=== PATIENT | male | born 1985 | race Caucasian/White ===

== ENCOUNTER 2019-09-27 11:25 | Inpatient (IN) | payer BC, OTHER, SELFPAY ==
[~2019-09-27 11:25] MED LIST: Dexamethasone 20 MG/5 ML VIAL ONE; Glycopyrrolate 0.2 MG/ML 5 ML SYRINGE ONE; Iopamidol-370 76% 500 ML 1 ML ONE; Lidocaine 1% PF 5 ML VIAL ONE; Metoclopramide HCl 10 MG/2 ML VIAL ONE; Ondansetron PF 4 MG/2 ML Vial ONE; PHENYLEPHRINE-NS 100 MCG/ML 10 ML SYRINGE ONE; PROPOFOL 200 MG/20 ML VIAL ONE; Rocuronium Bromide 10 MG/ML (10ML VIAL) ONE
--- NOTE | 2019-09-27 11:54 | RAD ---
Radiograph left leg tibia-fibula 2 views: HISTORY: Crush injury in 34-year-old male FINDINGS: No fracture of tibia or fibula IMPRESSION: Negative
--- NOTE | 2019-09-27 11:55 | RAD ---
EXAM: 2 views of the left femur HISTORY: Leg pain after crush injury COMPARISON: None FINDINGS: There is no evidence of acute fracture or dislocation. No soft tissue swelling is seen. No degenerative changes are seen in the hip. No radiopaque foreign body is seen. IMPRESSION: No evidence of acute osseous abnormality.
[2019-09-27 11:58] LABS: #Eosinphils 0.1 thou/uL (0.0-0.7); #Lymphocytes 1.9 thou/uL (1.20-3.40); #Monocytes 0.6 thou/uL (0.11-0.59); #Neutrophils 7.5 thou/uL (1.40-6.50); %Basophils 0.2 % (0.0-1.0); %Eosinophils 0.6 % (0.0-10.0); %Monocytes 5.6 % (0.0-10.0); %Neutrophils 74.5 % (42.0-75.0); Hemoglobin 13.3 g/dL (14.0-18.0); Mean Corpuscular HGB CONC 33.3 g/dL (32.0-36.0); Mean Corpuscular Hemoglobin 31.8 pg (27.0-31.0); Mean Corpuscular Volume 95.5 fL (78.0-98.0); Mean Platelet Volume 8.4 fL (7.4-10.4); Platelet Count 175 thou/uL (130-400); RBC Distribution Width 11.3 % (11.5-14.5); Red Blood Cell (RBC) Count 4.18 mill/uL (4.70-6.10)
[2019-09-27 12:25] LABS: ALT (SGPT) 13 U/L (8-55); AST (SGOT) 15 U/L (5-34); Albumin 4.3 g/dL (3.5-5.0); Alkaline Phosphatase 46 U/L (40-110); Anion Gap 13 mmol/L (10-20); BUN (Urea Nitrogen) 18 mg/dL (8.9-20.6); Bilirubin, Total 0.7 mg/dL (0.2-1.2); CK (CPK) 101 U/L (30-200); Calc. Creatinine Clearance 0 mL/min (70-130); Calcium 8.7 mg/dL (7.8-10.44); Carbon Dioxide 26 mmol/L (22-29); Chloride 103 mmol/L (98-107); Estimated GFR-MDRD 67; Globulin 2.4 g/dL (2.4-3.5); Glucose 137 mg/dL (70-105); Potassium 3.8 mmol/L (3.5-5.1); Protein, Total 6.7 g/dL (6.0-8.3); Sodium 138 mmol/L (136-145)
[2019-09-27] MEDS ORDERED: SUGAMMADEX SODIUM 500 MG/5 ML VIAL ONE (12:34)
[2019-09-27] MEDS ORDERED: Famotidine/PF 20 mg/2ml Vial ONE (12:34)
[2019-09-27] MEDS ORDERED: Heparin 5,000 UNITS/ML VIAL ONE (12:46)
[2019-09-27] MEDS ORDERED: Protamine Sulfate 50 MG/5 ML VIAL ONE ×2 (12:46→15:36)
--- NOTE | 2019-09-27 12:47 | CT ---
EXAM: CTA of the abdomen, pelvis, and bilateral lower extremities HISTORY: Crush injury to the left leg by machinery COMPARISON: None TECHNIQUE: Multiple contiguous axial images were obtained a CTA of the abdomen, pelvis, and bilateral lower extremities with contrast. Sagittal and coronal 3-D MIP reformats were performed. FINDINGS: Liver: Unremarkable. Gallbladder: Unremarkable. Kidneys: Unremarkable. Adrenal glands: Unremarkable. Spleen: Unremarkable. Pancreas: Unremarkable. Bowel: Unremarkable. Reproductive organs :Unremarkable. Retroperitoneum: No lymphadenopathy Bones: Degenerative changes in the spine. Inferior thorax: Unremarkable. Abdominal aorta. Normal caliber without evidence of dissection or aneurysmal dilatation. Celiac trunk: Patent SMA: Patent SHASHA: Patent Renal arteries: Bilateral single renal arteries without significant atherosclerotic disease Bilateral common iliac arteries: Unremarkable. Internal iliac arteries: Unremarkable. External iliac arteries: Unremarkable. Common femoral arteries: Unremarkable. Profunda femoral arteries: Unremarkable. Superficial femoral arteries: Unremarkable. Popliteal arteries: There is a 5.6 cm area of occlusion of the left popliteal artery with reconstitut ion of flow distally. Surrounding hematoma is seen. The right popliteal artery is unremarkable.. Right lower extremity: 3 vessel runoff without significant disease Left lower extremity: 3 vessel runoff without significant disease. Runoff evaluation is limited secon brent to the more proximal occlusion. IMPRESSION: Occlusion of the left popliteal artery with maintained distal flow. Dr. Miller notified of findings at 12:43 PM on 09/27/2019
[2019-09-27] MEDS ORDERED: TETANUS AND DIPHTHERIA TOX/PF 0.5 ML DISP.SYRIN IM ONE (12:48)
[2019-09-27] MEDS ORDERED: Morphine 2 MG/ML VIAL SLOW IVP PRN (12:48)
[2019-09-27] MEDS ORDERED: Ondansetron PF 4 MG/2 ML Vial IVP PRN ×2 (12:48→16:19)
[2019-09-27] MEDS ORDERED: Morphine 4 MG/ML VIAL SLOW IVP PRN (12:48)
[2019-09-27] MEDS ORDERED: hydrALAZINE 20 MG/ML VIAL SLOW IVP PRN (12:48)
[2019-09-27] MEDS ORDERED: Dextrose 5% in Water 1,000 ML IV PRN (12:48)
[2019-09-27] MEDS ORDERED: Promethazine HCl 25 MG/ML VIAL IM PRN (12:48)
[2019-09-27] MEDS ORDERED: Dextrose 50% Abboject 50 ML SYRINGE SLOW IVP PRN (12:48)
[2019-09-27] MEDS ORDERED: Fentanyl 250 MCG/5 ML VIAL ONE (12:52)
[2019-09-27] MEDS ORDERED: Fentanyl 100 MCG/2 ML VIAL ONE ×2 (12:52→17:04)
[2019-09-27] MEDS ORDERED: Phenylephrine 10 MG/ML VIAL ONE (12:52)
[2019-09-27] MEDS ORDERED: Sodium Chloride 0.9% 1,000 ML IV SCH ×2 (13:00→16:30)
[2019-09-27] MEDS ORDERED: Midazolam HCl 2 mg/2 ml Vial ONE (13:07)
[2019-09-27 13:25] LABS: Phosphorus 3.2 mg/dL (2.3-4.7)
[2019-09-27] MEDS ORDERED: Heparin 10,000 UNITS/1 ML VIAL ONE (13:45)
[2019-09-27] MEDS ORDERED: Acetaminophen 325 MG TAB PO PRN (16:19)
[2019-09-27] MEDS ORDERED: Fentanyl 100 MCG/2 ML VIAL SLOW IVP PRN ×2 (16:19)
[2019-09-27] MEDS ORDERED: HYDROcodone/Acetaminophen 5/325 mg Tablet PO PRN ×4 (16:19→21:25)
--- NOTE | 2019-09-27 17:36 | CON ---
DATE OF CONSULTATION: 09/27/2019 REQUESTING PHYSICIAN: Dr. Miller in the emergency room. CHIEF COMPLAINT: Crush injury, left leg. HISTORY OF PRESENT ILLNESS: The patient is an otherwise healthy, 34-year-old man, whose left distal thigh was caught between two pieces of having machinery. He reports local pain. He says that he can feel his foot, but below the level of the knee, his leg just does not quite feel right. Dr. Miller was not able to find dopplerable pulses and he asked me to assess the patient. The patient was able to move his toes and his ankle, and although his foot initially looked reasonably normal to me with capillary refill that was about 1 second, he had a palpable dorsalis pedis pulse on the right side, and on the left side, he did not. I was able to find a Doppler signal in the dorsalis pedis, but it did not seem to be of normal strength. I was not able to find a Doppler pulse in the posterior tibial position. The patient estimated his time of injury as 11:00 in the morning. He was checked into the ER around 11:30, and I was assessing the patient a little bit before 12:00. He went off to the Radiology suite to get a CT angiogram and I reviewed it immediately after it was performed. During that brief period of observation, his foot appeared to be a little bit duskier, though not overtly ischemic or cooler than the contralateral side. PAST MEDICAL HISTORY: Fairly noncontributory. He had had surgery on his right knee following a similar trauma. MEDICATIONS: He takes no medicines on a regular basis. ALLERGIES: HE DENIES ANY MEDICAL ALLERGIES. SOCIAL HISTORY: He does not smoke. REVIEW OF SYSTEMS: He denies any recent illnesses. PHYSICAL EXAMINATION: GENERAL: He is a young, fit-appearing man, in no distress. VITAL SIGNS: Heart rate was 70, blood pressure 155/81, temperature 97.9, and O2 saturations on room air were 98%. MUSCULOSKELETAL: He had some faint red roth about his distal left thigh, extending down a little bit below the knee. There was one very small area of bruising on the anterior thigh distally, though it was not grossly swollen, it was tender to the touch. He had palpable radial, femoral, and right dorsalis pedis pulses. I was not able to palpate the left dorsalis pedis pulse or either posterior tibial. The compartments of the left lower leg were soft. He was able to move his toes and his ankle was freely mobile. LABORATORY DATA: Showed hemoglobin of 13.3, platelets of 175,000. Electrolytes were normal. BUN was 18, creatinine 1.22, glucose 137. LFTs were normal. CK was 101. His CT angiogram showed a short-segment occlusion of the popliteal artery on the left side with occlusion about the level of the superior edge of the patella and reconstitution just below the knee joint. He appeared to have a relatively high takeoff of the anterior tibial. Femur and tib-fib films showed no evidence of fracture, and no evidence of fracture was seen on the CT scan. IMPRESSION AND RECOMMENDATIONS: Blunt traumatic occlusion of the left popliteal artery. We will take to the operating room for repair. Job ID: [id number]
--- NOTE | 2019-09-27 18:00 | OP ---
DATE OF PROCEDURE: 09/27/2019 PROCEDURES PERFORMED: Left popliteal artery repair with suprageniculate popliteal artery to tibioperoneal trunk bypass with reverse greater saphenous vein graft. PREOPERATIVE DIAGNOSIS: Blunt traumatic occlusion of the left popliteal artery. POSTOPERATIVE DIAGNOSIS: Blunt traumatic occlusion of the left popliteal artery. ANESTHESIA: General endotracheal anesthesia. INDICATIONS: The patient is a 34-year-old man, whose left distal thigh was pinned between pieces of heavy equipment. He had an abnormal vascular exam and CT scanning demonstrated short-segment occlusion of the popliteal artery. Now, taken the operating room for repair. FINDINGS: Perivascular hemorrhage within the popliteal fossa with a partial disruption of the medial head of the gastrocnemius. There was intramural hematoma in the popliteal artery and demarcation of transition zone from good pulse in the popliteal artery to absence of a pulse. Postoperatively, there was a palpable dorsalis pedis in the foot. DESCRIPTION OF PROCEDURE: After informed consent was obtained, the patient was taken to the operating room, placed in supine position on the operating table. After the induction of general anesthesia, the patient's greater saphenous vein on either side of the left knee was ultrasonographically mapped and marked. His lower abdomen, groins, and lower extremities were then prepped and draped in sterile fashion. A longitudinal incision was made about two fingerbreadths below the knee, over where the saphenous vein ran. A superficial branch was first encountered. It was mobilized, and upon following it proximally, a deeper branch that ran more anteriorly was identified. This was followed for about a handbreadth distally and then it was followed proximally. An incision was made above the knee and creating a skin bridge, under which the greater saphenous was mobilized, for about a handbreadth and half, the greater saphenous above the knee was mobilized. It was cannulated distally and side branches were controlled. It was wrapped in a sponge and then the popliteal fossa was entered. The popliteal artery was identified and it was followed distally. The medial head of the gastrocnemius was mobilized and retracted posteriorly, and the neurovascular bundle just anterior to it was identified. The configuration of the artery was somewhat squared off consistent with the tibioperoneal trunk. No branch points on it were identified within the scope of that wound. Following it proximally, some bruising of the vessel could be identified. There was no palpable pulse within that vessel. Palpating the popliteal artery within the thigh wound, there appeared to be a transition zone at about the knee joint, where a pulse could no longer be palpated. The patient was heparinized. The saphenous was ligated and divided proximally. After adequate circulation time of heparin, proximal and distal control was established on the tibioperoneal trunk. A #3 Ayana catheter easily passed distally, although improved back bleeding was seen upon withdrawing the Ayana, no thrombus or intimal disruption was seen locally or extracted from the vessel distally. Saphenous vein was reversed, spatulated, and anastomosed to that arteriotomy end-to-side with running 6-0 Prolene suture. The plane of Leriche was developed by blunt dissection with the surgeon's fingers and then after orienting the graft and being sure to maintain that orientation, it was passed up to the thigh incision with a pair of sponge with a sponge stick clamp. The vascular controls were released on the tibioperoneal trunk and moved to the popliteal artery, above the knee, the suprageniculate popliteal artery was opened and the vein trimmed to length and spatulated. It was anastomosed there end-to-side with running Prolene. The artery was forward and back bled and suture line secured, and the vascular controls were released. The suture lines and wounds were inspected for hemostasis. Protamine was administered. When hemostasis was adequate, the incisions were closed in layers of subcutaneous and subcuticular Vicryl. Dermabond and dressings were applied. The patient was awakened and extubated in the operating room and taken to the recovery area in good condition with a palpable dorsalis pedis pulse. Job ID: [id number]
--- NOTE | 2019-09-27 18:02 | HP ---
This is Divina Gonzales NP dictating a report for Darrel Brandon DO. REQUESTING: Dr. Miller, ER physician. CONSULTS: Cardiovascular Surgery, Dr. Cárdenas. CHIEF COMPLAINT: Level 2 trauma activation. Crush injury, left lower extremity. HISTORY OF PRESENT ILLNESS: This is a healthy 34-year-old male who was at his place of work when he became crushed by machinery to his left leg. The patient reports being trapped for approximately 1 minute. The patient denies any other injuries or losing consciousness. The patient denies any recent illness, cough, cold, fever, and/or chills. The patient was evaluated in the emergency room, and an x-ray of his left lower extremity was unremarkable. The patient had no posterior tibial pulses or dorsalis pedis pulses. The patient had normal sensation and movement to his left lower extremity. A CTA of his lower leg was obtained, which showed occlusion to the popliteal artery. The patient was given 1 L of normal saline in the emergency room. The patient's pain is somewhat controlled at this time. REVIEW OF SYSTEMS: A 10-point review of systems is negative unless otherwise indicated in the above HPI. PAST MEDICAL HISTORY: Denies. PAST SURGICAL HISTORY: Right knee surgery. SOCIAL HISTORY: Denies tobacco use, denies illicit drug use. Reports occasional social alcohol use. ALLERGIES: NO KNOWN DRUG ALLERGIES. CURRENT MEDICATIONS: Oral steroids and ibuprofen for a right elbow strain. OBJECTIVE: VITAL SIGNS: Temperature 97.9, pulse 58, respirations 16, blood pressure 153/72, and SpO2 100% on room air. GENERAL: Well-appearing middle-aged male, awake, alert, in no distress, sitting up in the ER bed. HEENT: Head is atraumatic normocephalic. Pupils are equal, midface stable. Oropharynx, clear. No obvious facial trauma. NECK: No cervical spine tenderness. Trachea midline. No JVD. RESPIRATORY: Equal chest rise and fall, bilateral breath sounds clear, no wheezing, rales, or rhonchi. CARDIOVASCULAR: Regular rate. No murmurs. No pedal edema. ABDOMEN: Soft, nontender, nondistended. EXTREMITIES: Moves all extremities. All extremities warm and pink. Left dorsalis pedis and posterior tibial pulses absent, normal sensation and movement to the left foot. Contusions to the left distal thigh with swelling to the left superior calf region. There was a tourniquet placed by EMS and which was taken down upon arrival. SKIN: Intact to left lower extremity. Other extremities unremarkable. NEUROLOGIC: No focal deficit. LABORATORY DATA: WBC 10.0, RBC 4.18, hemoglobin 13.3, hematocrit 39.9, and platelets 175. Sodium 138, potassium 3.8, chloride 103, carbon dioxide 26, BUN 18, creatinine 1.22, estimated GFR 67, glucose 137, calcium 8.7, phosphorus 3.2, magnesium 1.7, total bilirubin 0.7, AST 15, ALT 13, and alkaline phos 46. CK 101, albumin 4.3. DIAGNOSTICS: 1. Left femur x-ray; impression, no evidence of acute osseous abnormality. 2. Left tibia fibula x-ray; impression, negative for fracture. 3. CTA of the abdomen, pelvis, and bilateral extremities: Liver unremarkable. Gallbladder unremarkable. Kidneys and spleen unremarkable. Bilateral common iliac arteries unremarkable. Occlusion of the left popliteal artery with maintain distal flow. IMPRESSION: 1. Crush injury to left lower extremity with popliteal artery occlusion. 2. Abrasions, left lower extremity. PLAN: 1. N.p.o. 2. IV maintenance fluids. 3. Normal saline at 120 mL an hour. 4. Cardiovascular Surgery plans to take the patient to the OR for repair of his popliteal artery occlusion. We will continue vascular checks postop. PT and OT to evaluate and treat postop. Regular diet as tolerated postop. Repeat labs in the morning. The plan was discussed with Dr. Brandon. The patient was evaluated by Dr. Brandon in the emergency room. Job ID: [id number]
[2019-09-27 18:21] VITALS: BMI 25.7
[2019-09-27] MEDS: Ketorolac Tromethamine 30 MG/ML VIAL IVP SCH ×2 (18:51→23:47)
[2019-09-27] MEDS: Sodium Chloride 0.9% 1,000 ML IV SCH (21:33)
[2019-09-27] MEDS: Acetaminophen 500 MG TAB PO SCH (23:47)
--- NOTE | 2019-09-28 01:02 | PRG ---
DATE OF SERVICE: 09/27/2019 SUBJECTIVE: The patient was seen this evening during rounds. He is postoperative day 0 after a bypass graft of the left lower extremity popliteal artery injury by Dr. Wilcox. Upon my evaluation, the patient had equal DP and PT pulses bilaterally. His foot was warm. Motor and sensation were intact. His dressings were clean, dry, and intact. There was no signs of any significant oozing. The patient reports that he had some pain earlier in his calf when he flexed and extended his ankle, but he reported it improved after some pain control. All compartments were soft in the left lower extremity. OBJECTIVE: VITAL SIGNS: Temperature 98.1, pulse 68, respirations 18, oxygen saturation 98% on room air, blood pressure 99/63. GENERAL: Well-appearing young male, lying in bed with no signs of acute distress. PULMONARY: Equal chest rise and fall. No signs of acute respiratory distress. CARDIAC: Regular rate and rhythm. EXTREMITIES: Left lower extremity with surgical dressing that is clean, dry, and intact. All compartments are soft. Gross motor and sensation intact. He has 2+ pulses in his bilateral lower extremities at the DP and PT. NEUROLOGIC: GCS is 15. ASSESSMENT: 1. Status post crush injury by machinery at work. 2. Left popliteal artery injury, status post repair. PLAN: Continue current diet and pain regimen. Continue physical and occupational therapy tomorrow per Dr. Wilcox. The patient can be out of bed on postop day #1 in the morning and he is to keep his left lower extremity elevated. The patient to receive repeat blood work in the morning. He has been placed on full-dose aspirin in the morning by Dr. Wilcox. Job ID: [id number]
[2019-09-28] MEDS: Sodium Chloride 0.9% 1,000 ML IV SCH (05:42)
[2019-09-28] MEDS: Ketorolac Tromethamine 30 MG/ML VIAL IVP SCH (05:42)
[2019-09-28] MEDS: Acetaminophen 500 MG TAB PO SCH ×2 (05:42→10:45)
[2019-09-28 06:44] LABS: Hemoglobin 11.9 g/dL (14.0-18.0); Mean Corpuscular HGB CONC 32.7 g/dL (32.0-36.0); Mean Corpuscular Hemoglobin 31.9 pg (27.0-31.0); Mean Corpuscular Volume 97.6 fL (78.0-98.0); Mean Platelet Volume 9.3 fL (7.4-10.4); Platelet Count 159 thou/uL (130-400); RBC Distribution Width 11.3 % (11.5-14.5); Red Blood Cell (RBC) Count 3.73 mill/uL (4.70-6.10); White Blood Cell (WBC) Count 14.6 thou/uL (4.8-10.8)
[2019-09-28 07:07] LABS: Phosphorus 4.5 mg/dL (2.3-4.7)
[2019-09-28 07:08] LABS: Anion Gap 9 mmol/L (10-20); BUN (Urea Nitrogen) 14 mg/dL (8.9-20.6); CK (CPK) 400 U/L (30-200); Calc. Creatinine Clearance 121 mL/min (70-130); Calcium 8.3 mg/dL (7.8-10.44); Carbon Dioxide 30 mmol/L (22-29); Chloride 103 mmol/L (98-107); Estimated GFR-MDRD 85; Glucose 122 mg/dL (70-105); Magnesium 1.9 mg/dL (1.6-2.6); Potassium 4.2 mmol/L (3.5-5.1); Sodium 138 mmol/L (136-145)
[2019-09-28] MEDS ORDERED: Aspirin 325 MG TAB PO SCH (09:00)
[2019-09-28] MEDS ORDERED: traMADol HCl 50 MG TAB PO PRN (10:37)
[2019-09-28] MEDS ORDERED: Cyclobenzaprine 10 MG TAB PO PRN (10:37)
[2019-09-28] MEDS ORDERED: Ibuprofen 600 MG TAB PO PRN (10:39)
[2019-09-28 10:56] VITALS: BP 124/74; TEMP 98.5
[2019-09-28] MEDS ORDERED: traMADol HCl 50 MG TAB PO SCH (12:00)
[2019-09-28] MEDS ORDERED: Gabapentin 300 MG CAP PO SCH (15:00)
--- NOTE | 2019-09-28 16:38 | DIS ---
DATE OF ADMISSION: 09/27/2019 DATE OF DISCHARGE: 09/28/2019 CONSULTS: Cardiovascular Surgery, Dr. Cárdenas. PROCEDURES: On 09/27/2019, left popliteal artery repair with suprageniculate popliteal artery to tibioperoneal trunk bypass with reverse greater saphenous vein graft. PRIMARY DIAGNOSIS: Blunt traumatic occlusion of the left popliteal artery, crushed by machinery at work. SECONDARY DIAGNOSES: 1. Acute traumatic pain. 2. Abrasions to the left lower extremity. DISCHARGE MEDICATIONS: 1. Ibuprofen 600 mg as needed q.8 hours. 2. MiraLAX as needed for constipation. 3. [place] 5 mg/325 one to two tabs p.o. q.4 hours p.r.n. pain, #[address] Cárdenas. 4. Continue Medrol Dosepak that was started 3 days ago for elbow injury. 5. No discontinued medications. HISTORY OF PRESENT ILLNESS AND HOSPITAL COURSE: This was a level 2 trauma activation after the patient was crushed between two pieces of machinery to his left lower extremity. He is a healthy 34-year-old gentleman, who reports being trapped for approximately 1 minute between the machine. The patient denied any other injuries or losing consciousness. The patient was taken to the emergency room and evaluated. Initial left lower extremity x-rays were unremarkable showing no acute osseous abnormalities. The patient had no posterior tibial pulses or dorsalis pedal pulses in the emergency room. The patient did have some mild loss of sensation in that extremity, but was able to move his toes with pain. The patient did have a brief period where EMS placed a tourniquet to his extremity due to the extensive swelling into his calf. The patient did not have any open wounds or active bleeding externally. The tourniquet to the left lower extremity was taken down immediately by ER physician. The patient was given a L of normal saline in the emergency room, but did not require any pain medications at that time. The patient was taken to the OR for repair of his popliteal artery injury by Dr. Cárdenas. Pulses were intact postop. The patient had no overnight events. The patient's pain was well controlled overnight and this morning. The patient was tolerating a regular diet and was able to ambulate with physical therapy. The patient did require crutches as he did have some moderate left calf pain. On the day of discharge, the patient was examined by Dr. Cárdenas, who agreed the patient was okay for discharge. The patient's vital signs were stable and his exam was unremarkable including cardiopulmonary and GI exam. The patient voiced no complaints or concerns. The patient was deemed stable for discharge home. DISPOSITION: Stable. DISCHARGE INSTRUCTIONS: 1. Location: Home. 2. Diet: Regular diet. 3. Activity: Activity as tolerated, weightbearing as tolerated. 4. Followup: Follow up with Dr. Cárdenas as directed. No need to follow up with Trauma Services. Call for any questions. Job ID: [id number]
[2019-09-28] MEDS ORDERED: Senokot S 8.6-50 MG TAB PO SCH (21:00)
[2019-09-29] MEDS ORDERED: Polyethylene Glycol 3350 17 GM Packet PO SCH (09:00)
== END 2019-09-28 12:20 | disposition home or self-care (01) | DRG 909 ==
LOC: ERS 11:25 → SDC 12:48 → SURG A 12:49
PROVIDERS: ADMIT Surgery; ATTEND Surgery
PROC: 041N09L Bypass Left Popliteal Artery to Popliteal Artery with Autologous Venous Tissue, Open Approach (ICD-10-PCS; principal; 2019-09-27)
PROC: 06BQ0ZZ Excision of Left Saphenous Vein, Open Approach (ICD-10-PCS; 2019-09-27)
DX: S85.092A Other specified injury of popliteal artery, left leg, initial encounter (principal); S80.812A Abrasion, left lower leg, initial encounter; X58.XXXA Exposure to other specified factors, initial encounter; Y92.69 Other specified industrial and construction area as the place of occurrence of the external cause
CPT/HCPCS: 36415; 75635; 80048; 80053; 82550; 83735; 84100; 85025; 85027; 86850; 86900; 86901; 90714; 96360; G0390; J1100; J1644; J1885; J2250; J2370; J2405; J2704; J2720; J2765; J3010; Q9967; S0028